=== PATIENT | female | born 2000 | race Caucasian/White ===

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

== ENCOUNTER → 2025-10-26 | Outpatient (CLI) | payer BC ==
[2025-10-26 15:05] LABS: PLATELET COUNT, AUTOMATED 323 10^3/uL (150-450)
[2025-10-26 15:50] LABS: HIV 1&2 SCREEN NEGATIVE (NEGATIVE)
[2025-10-26 15:56] LABS: Trichomonas vaginalis (AMP) NOT DETECTED (NEGATIVE)
[2025-10-26 15:59] LABS: HEPATITIS C VIRUS ABY INDEX < 0.02 INDEX (<0.8)
[2025-10-26 16:20] LABS: GC DNA AMPLIFICATION NEGATIVE (NEGATIVE)
== END ==
LOC: M PLALAB 10:39
PROVIDERS: ATTEND Specialist
DX: Z34.01 Encounter for supervision of normal first pregnancy, first trimester (principal)